=== PATIENT | male | born 1995 | race Caucasian/White ===

== ENCOUNTER 2024-10-25 20:15 | Emergency (ER) | payer BC, OTHER | END 2024-10-25 22:20 | disposition home or self-care (01) | LOC: CC.ED 20:15 | DX: S52.501A Unspecified fracture of the lower end of right radius, initial encounter for closed fracture (principal); S62.111A Displaced fracture of triquetrum [cuneiform] bone, right wrist, initial encounter for closed fracture; W01.0XXA Fall on same level from slipping, tripping and stumbling without subsequent striking against object, initial encounter | CPT/HCPCS: 29125; 73110-RT; 99283-25 ==